=== PATIENT | female | born 1995 | race Caucasian/White ===

== ENCOUNTER 2018-10-28 21:50 | Emergency (ER) | payer MEDICAID ==
[~2018-10-28] VITALS: Ht 152.4 cm; Wt 59.0 kg
[2018-10-28 21:55] VITALS: Ht 152.4 cm; Wt 59.0 kg
[2018-10-29 00:34] VITALS: BP 106/67
== END 2018-10-29 00:34 | disposition home or self-care (01) ==
LOC: ED 21:50
DX: N64.52 Nipple discharge (principal); N64.4 Mastodynia
CPT/HCPCS: 76641

== ENCOUNTER 2019-05-20 15:02 | Emergency (ER) | payer MEDICAID ==
[~2019-05-20] VITALS: Ht 157.5 cm; Wt 61.7 kg
[2019-05-20 15:13] VITALS: Ht 157.5 cm; Wt 61.7 kg
[2019-05-20 16:40] LABS: CALCIUM 8.7 mg/dL (8.5-10.1); CARBON DIOXIDE 26.6 mmol/L (21-32); CHLORIDE SERUM 104 mmol/L (98-107); CREATININE SERUM 0.6 mg/dL (0.6-1.0); GFR1 > 60 mL/min; GLUCOSE SERUM 92 mg/dL (74-106); POTASSIUM SERUM 3.6 mmol/L (3.5-5.1); SODIUM SERUM 141 mmol/L (136-145)
[2019-05-20 16:45] LABS: ALBUMIN 4.1 g/dL (3.4-5.0); ALKALINE PHOSPHATASE 96 U/L (46-116); ALT/SGPT 18 U/L (14-59); AST/SGOT 11 U/L (15-37); BILIRUBIN TOTAL 0.31 mg/dL (0.20-1.00); TOTAL PROTEIN, SERUM 7.9 g/dL (6.4-8.2)
[2019-05-20 16:54] LABS: microscopic required? YES; urine erythrocyte TRACE (NEGATIVE)
[2019-05-20 16:54] LABS: BASOPHIL % 0.4 % (0-2); PLATELET COUNT 290 x10^3mcL (130-400)
[2019-05-20 17:18] VITALS: BP 101/63
== END 2019-05-20 18:10 | disposition home or self-care (01) ==
LOC: ED 15:02
PROVIDERS: Emergency Medicine
DX: N39.0 Urinary tract infection, site not specified (principal); R07.89 Other chest pain; R06.02 Shortness of breath
CPT/HCPCS: 36415; Q0092

== ENCOUNTER 2020-07-01 10:42 | Emergency (ER) | payer OTHER ==
[~2020-07-01] VITALS: Ht 152.4 cm; Wt 65.8 kg
[2020-07-01 10:51] VITALS: Ht 152.4 cm; Wt 65.8 kg
[2020-07-01 13:01] VITALS: BP 128/81
== END 2020-07-01 13:01 | disposition home or self-care (01) ==
LOC: ED 10:42
DX: K08.89 Other specified disorders of teeth and supporting structures (principal); R53.1 Weakness; R42 Dizziness and giddiness; R51 Headache
CPT/HCPCS: 82962; J0690; J1885; Q0162